=== PATIENT | female | born 1995 | race Caucasian/White ===

== ENCOUNTER 2017-02-08 12:08 | Inpatient (IN) | payer MEDICAID ==
[2017-02-08] MEDS ORDERED: OXYTOCIN/NORMAL SALINE 1,000 ML IV PRN (12:50)
[2017-02-08] MEDS ORDERED: RINGERS SOLUTION,LACTATED 1,000 ML IV PRN (12:50)
[2017-02-08] MEDS ORDERED: RINGERS SOLUTION,LACTATED 300 ML IV ONE (12:50)
[2017-02-08 13:07] LABS: APPEARANCE,URINE CLEAR; BILIRUBIN,URINE NEGATIVE (NEGATIVE); GLUCOSE, URINE NEGATIVE (NEGATIVE); KETONES,URINE NEGATIVE (NEGATIVE); LEUKOCYTE ESTERASE,URINE NEGATIVE (NEGATIVE); NITRITE,URINE NEGATIVE (NEGATIVE); PROTEIN,URINE NEGATIVE (NEGATIVE); URINE SPECIFIC GRAVITY 1.004; UROBILINOGEN,URINE NEGATIVE mg/dL (<2.0)
[2017-02-08 13:15] LABS: ABSOLUTE EOSINOPHILS # (AUTO) 0.1 10^3/uL (0.0-0.6); ABSOLUTE LYMPHOCYTES (AUTO) 2.3 10^3/uL (0.5-4.7); ABSOLUTE MONOCYTES (AUTO) 0.8 10^3/uL (0.1-1.4); ABSOLUTE NEUT (AUTO) 11.4 10^3/uL (1.7-8.2); BASOPHILS % (AUTO) 0.2 % (0-2); EOSINOPHILS % (AUTO) 0.4 % (0-6); HEMATOCRIT 37.4 % (36.0-47.0); HEMOGLOBIN 12.2 g/dL (12.0-15.5); HGB HCT DIFFERENCE -0.8; LYMPHOCYTES % (AUTO) 15.9 % (13-45); MEAN CORPUSCULAR HEMOGLOBIN 28.5 pg (27.0-33.4); MEAN CORPUSCULAR HGB CONC 32.8 g/dL (32.0-36.0); MEAN CORPUSCULAR VOLUME 87 fl (80-97); MONOCYTES % (AUTO) 5.7 % (3-13); RED CELL DISTRIBUTION WIDTH 15.6 % (11.5-14.0); SEGMENTED NEUTROPHILS % (AUTO) 77.8 % (42-78); WHITE BLOOD COUNT 14.7 10^3/uL (4.0-10.5)
[2017-02-08 13:21] LABS: URINE BARBITURATES SCREEN NEGATIVE; URINE METHADONE SCREEN NEGATIVE; URINE OPIATES LOW NEGATIVE; URINE PHENCYCLIDINE SCREEN NEGATIVE
[2017-02-08] MEDS ORDERED: MISOPROSTOL 0.2 MG TABLET ONE (14:28)
[2017-02-08] MEDS ORDERED: LIDOCAINE 1% INJ-PF (10 MG/ML) 30 ML SDV ONE (14:28)
[2017-02-08] MEDS ORDERED: OXYTOCIN/NORMAL SALINE 20 UNIT/1,000 ML RTUINJ ONE (14:28)
[2017-02-09] MEDS ORDERED: NALBUPHINE HCL INJ 10 MG/1 ML AMPULE INJ ONE (00:37)
[2017-02-09] MEDS ORDERED: DIPHENHYDRAMINE HCL 50 MG/ML VIAL IV PRN ×2 (00:52→12:49)
[2017-02-09] MEDS ORDERED: EPHEDRINE SULFATE INJ 50 MG/1 ML AMPULE IV ONE (00:52)
[2017-02-09] MEDS ORDERED: BENZOIN/ALOE VERA/STORAX/TOLU TINCTURE 60 ML TP PRN (00:52)
[2017-02-09] MEDS ORDERED: EPHEDRINE SULFATE INJ 50 MG/1 ML AMPULE IV PRN (00:52)
[2017-02-09] MEDS ORDERED: FENTANYL/BUPIVACAINE/NS/PF 100 ML EPI PRN (00:52)
[2017-02-09] MEDS ORDERED: BUPIVACAINE HCL 0.25 % INJ/PF (2.5 MG/1 ML) 30 ML VIAL INFIL ONE (00:52)
[2017-02-09] MEDS ORDERED: EPHEDRINE SULFATE INJ 50 MG/1 ML AMPULE ONE ×2 (00:56→12:36)
[2017-02-09] MEDS ORDERED: BUPIVACAINE HCL 0.25 % INJ/PF (2.5 MG/1 ML) 30 ML VIAL ONE (00:57)
[2017-02-09] MEDS ORDERED: FENTANYL/BUPIVACAINE/NS/PF 200 MCG/100 ML RTUINJ EPI ONE ×2 (00:57→09:26)
--- NOTE | 2017-02-09 03:31 | L&D Progress Notes ---
PROGRESS NOTES Datetime Report Generated by CPN: 02/09/2017 03:30 PROGRESS NOTE Impression: Premature Rupture of Membranes Procedures: Intrauterine Pressure Catheter Plan: Induction Vital Signs : Reviewed Comment: IUPC placed to assure adequate contractions. Cont induction. VAGINAL EXAM Dilatation: 4 Dilatation: 2 Effacement: 90 Effacement: 80 Station: 0 Station: -2 Contractions: irregular MEMBRANES Membranes: Ruptured Amniotic Fluid Color: Clear FETUS A FHR Category: Category I Estimated Weight (gm): 4000 Presentation: Vertex SIGNATURE SIGNATURE: [id number] Signature: with User ID: [email or web address]
--- NOTE | 2017-02-09 04:01 | L&D Progress Notes ---
PROGRESS NOTES Datetime Report Generated by CPN: 02/09/2017 04:00 PROGRESS NOTE Comment: Pt has had intermittent lates which respond to oxygen, positioning and ephedrine when bp low. Discussed r/b/a of should need arise. IUPC readjusted after repositioning and flushed...will use ext toco if needed. Currently reassuring fhts. FETUS C SIGNATURE: [id number] Signature: with User ID: [email or web address]
--- NOTE | 2017-02-09 08:21 | L&D Progress Notes ---
PROGRESS NOTES Datetime Report Generated by CPN: 02/09/2017 08:21 PROGRESS NOTE Impression: Reassuring Heart Rate; Rupture of Membranes Plan: Continue Present Management; Induction Informed Consent Obtained: Vaginal Delivery Vital Signs : Reviewed; Within Normal Limits Comment: comfortable with epidural, Pitocin infusing @ 10, Cat 1 strip FETUS A Monitoring: External US Variability: Moderate 6-25bpm Accelerations: 15X15 Decelerations: None : 39.6 FETUS C SIGNATURE: [id number] Assignment: Facundo Butler DO Signature: with User ID: [email or web address] : with User ID: [email or web address]
--- NOTE | 2017-02-09 08:28 | L&D Progress Notes ---
PROGRESS NOTES Datetime Report Generated by CPN: 02/09/2017 08:28 PROGRESS NOTE Comment: variable and late decelerations x 3, moderate variabilitym repositioned, monitor closely FETUS C SIGNATURE: [id number] Assignment: Facundo ButlerDO Signature: with User ID: [email or web address] : with User ID: [email or web address]
[2017-02-09] MEDS ORDERED: CEFAZOLIN 2 GM/D5W RTU 2 GM/50 ML RTUPB IV ONE ×2 (10:17→12:30)
[2017-02-09] MEDS ORDERED: CITRIC ACID/SODIUM CITRATE ORAL SOLN 15 ML UDCUP ONE (12:30)
[2017-02-09] MEDS ORDERED: BUPIVACAINE HCL 0.5 % INJ/PF 30 ML SDV ONE (12:34)
[2017-02-09] MEDS ORDERED: FENTANYL CITRATE INJ/PF 100 MCG/2 ML AMPUL ONE ×2 (12:35→13:46)
[2017-02-09] MEDS ORDERED: OXYTOCIN 10 UNIT/ML VIAL ONE (12:35)
[2017-02-09] MEDS ORDERED: FENTANYL CITRATE INJ/PF 250 MCG/5 ML AMPULE ONE (12:35)
[2017-02-09] MEDS ORDERED: MIDAZOLAM 2 MG/2 ML INJ ONE (12:36)
[2017-02-09] MEDS ORDERED: OXYTOCIN/NORMAL SALINE 20 UNIT/1,000 ML RTUINJ ONE (12:36)
[2017-02-09] MEDS ORDERED: ONDANSETRON HCL INJ/PF 4 MG/2 ML SDV ONE (12:36)
[2017-02-09] MEDS ORDERED: METHYLERGONOVINE MALEATE INJ/PF 0.2 MG/1 ML AMPULE ONE (12:40)
[2017-02-09] MEDS ORDERED: MORPHINE SULFATE 10 MG/ML INJ IV PRN (12:49)
[2017-02-09] MEDS ORDERED: FENTANYL CITRATE INJ/PF 100 MCG/2 ML AMPUL IV PRN ×3 (12:49)
[2017-02-09] MEDS ORDERED: PROMETHAZINE HCL INJ 25 MG/1 ML VIAL IV PRN ×2 (12:49→14:40)
[2017-02-09] MEDS ORDERED: MEPERIDINE HCL/PF INJ 25 MG/1 ML DISP.SYRIN IV PRN (12:49)
[2017-02-09] MEDS ORDERED: ACETAMINOPHEN 100 ML IV ONE (14:12)
[2017-02-09] MEDS ORDERED: KETOROLAC TROMETHAMINE INJ/PF 30 MG/1 ML SDV ONE (14:12)
--- NOTE | 2017-02-09 14:26 | Delivery Summary ---
Del Sum A-C Datetime Report Generated by CPN: 02/09/2017 14:25 DELIVERY PERSONNEL DELIVERY PERSONNEL: [id number] Delivery Doctor:: Facundo Butler DO Anesthesiologist:: Golden Alas MD AIRFRAME AND POWERPLANT MECHANIC:: Chau Harris CRNA Labor and Delivery Nurse:: Nena Coulter RN Neonatal Nurse Practitioner:: ELIJAH Barber Nursery Nurse:: Jennifer Penny RN Founder Chairman And Chief Creative Officer/TECHNICAL SALES ASSOCIATE: [facility] Founder Chairman And Chief Creative Officer/TECHNICAL SALES ASSOCIATE: Tia oLfton LINE HAUL DRIVER MATERNAL INFORMATION Delivery Anesthesia: Epidural Medications After Delivery: Pitocin Bolus-Please Comment; Pitocin Drip 20 Units/1000ml NSS; Methergine 0.2mg IM Estimated Blood Loss (ml): 600 Maternal Complications: Premature Rupture of Membranes Other Maternal Complications: prolonged ROM LABOR SUMMARY EDC: 02/16/2017 00:00 No. Babies in Womb: 1 Attempted: No Labor Anesthesia: Epidural LABOR INFORMATION Reason for Induction: Not Applicable Oxytocin: Augmentation Group B Beta Strep: neg Antibiotics # of Doses: 2 Antibiotics Time of Last Dose: 1231 Name of Antibiotic Given: Ancef Steroids Given: None Reason Steroids Not Administered: Not Applicable MEMBRANES Membranes Rupture Method: Spontaneous Rupture of Membranes: 02/08/2017 11:00 Length of Rupture (hr): 26.10 Amniotic Fluid Color: Clear Amniotic Fluid Amount: Small Amniotic Fluid Odor: None STAGES OF LABOR Stage 3 hr: 0 Stage 3 min: 1 VAGINAL DELIVERY Episiotomy: None Laceration Extension: N/A Laceration Type: None Laceration Repair: Not Applicable CSECTION DELIVERY Primary Indication: Nonreassuring Status Secondary Indication: Other Other Secondary Indication: Failure to progress CSection Urgency: Non-Scheduled CSection Incidence: Primary Labor: Labor Elective: Nonelective CSection Incision: Lower Uterine Transverse BABY A INFORMATION Delivery Date/Time: 02/09/2017 13:06 Method of Delivery: Born in Route : No : N/A Forceps: N/A Vacuum Extraction: N/A Shoulder Dystocia : No PRESENTATION/POSITION BABY A Presentation: Cephalic Cephalic Presentation: Vertex Breech Presentation: N/A PLACENTA INFORMATION BABY A Placenta Delivery Time : 02/09/2017 13:07 Placenta Method of Delivery: Manual Removal Placenta Status: Delivered SCORES BABY A Heart Rate 1 min: >100 bpm Resp Effort 1 min: Good Cry Reflex Irritability 1 min: Cough or Sneeze or Pulls Away Muscle Tone 1 min: Active Motion Color 1 min: Blue/Pale Resuscitation Effort 1 min: Tactile Stimulation SCORE 1 MIN: 8 Heart Rate 5 min: >100 bpm Resp Effort 5 min: Good Cry Reflex Irritability 5 min: Cough or Sneeze or Pulls Away Muscle Tone 5 min: Active Motion Color 5 min: Body [place], Extremities Blue Resuscitation Effort 5 min: Tactile Stimulation SCORE 5 MIN: 9 INFORMATION BABY A Gestational Age at Delivery: 39.0 Gestational Status: Full Term- 39- 40.6 Weeks Outcome : Liveborn Infant Condition : Stable Sex: Male WEIGHT/LENGTH BABY A Infant Birthweight (gm): 3365 Infant Weight (lb): 7 Infant Weight (oz): 7 Length (in): 21.00 Length (cm): 53.34 CORD INFORMATION BABY A No. Cord Vessels: 3 Nuchal Cord : Around Neck x1, Loose Cord Blood Taken: Yes-For Eval (Mom's Blood Type - or O+) Suction: None ASSESSMENT BABY A Infant Complications: Multiple Late Decels; Multiple Variable Decels Physical Findings at Delivery: Molding of the Head Infant Respirations: Appears Normal Skin to Skin: No Power Sewing Machine Operator/ALS Called : No Infant Care By: R. Lucas Vaughan RN Transferred To: Nursery BABY B INFORMATION : N/A
[2017-02-09] MEDS ORDERED: KETOROLAC TROMETHAMINE INJ/PF 30 MG/1 ML SDV IV ONE (14:36)
[2017-02-09] MEDS ORDERED: ACETAMINOPHEN 100 ML IV PRN (14:36)
[2017-02-09] MEDS ORDERED: OXYTOCIN/NORMAL SALINE 1,000 ML IV PRN (14:40)
[2017-02-09] MEDS ORDERED: SIMETHICONE 80 MG TAB.CHEW PO PRN (14:40)
[2017-02-09] MEDS ORDERED: OXYCODONE-ACETAMINOPHEN 5-325 MG TABLET PO PRN ×2 (14:40)
[2017-02-09] MEDS ORDERED: ACETAMINOPHEN 325 MG TABLET PO PRN (14:40)
[2017-02-09] MEDS ORDERED: DIPH/PERTUSS(ACELL)/TETANUS VAC/PF 0.5 ML SYR (>=10YO) IM PRN (14:40)
[2017-02-09] MEDS ORDERED: MEASLES,MUMPS&RUBELLA VACC/PF 0.5 ML VIAL SUBCUT PRN ×2 (14:40→15:15)
[2017-02-09] MEDS ORDERED: CEFAZOLIN 2 GM/D5W RTU 2 GM/50 ML RTUPB IV SCH (15:00)
[2017-02-09] MEDS ORDERED: HYDROMORPHONE HCL INJ/PF 2 MG/ML AMPULE IV PRN (15:03)
[2017-02-09] MEDS ORDERED: PROMETHAZINE HCL INJ 25 MG/1 ML VIAL IM PRN (15:13)
--- NOTE | 2017-02-09 15:22 | Admission Physical ---
Datetime Report Generated by CPN: 02/09/2017 15:21 CURRENT ADMISSION Hx Assessment: The History has been Reviewed and is Current Chief Complaint: Suspected Ruptured Membranes Indication for Induction: Not Applicable Admit Plan: Admit to Unit; Initiate Labor Protocol ALLERGIES Medication Allergies: No Medication Allergies: No Known Allergies (02/08/2017) Latex: No Latex Allergies Food Allergies: none Environmental Allergies: none OBSTETRICAL HISTORY EDC: 02/16/2017 00:00 : 1 Para: 0 Term: 0 : 0 SAB: 0 IAB: 0 Ectopic: 0 Livin Cesareans: 0 VBACs: 0 Multiple Births: 0 Gestational Diabetes: No Rh Sensitization: No Incompetent Cervix: No TARSHA: No Infertility: No ART Treatment: No Uterine Anomaly: No IUGR: No Hx Previous C/S: No Macrosomia: No Hx Loss/Stillborn: No PIH: No Hx : No Placenta Previa/Abruption: No Depression/PP Depression: No PTL/PROM: No Post Hemorrhage: No Current Procedures: Ultrasound Obstetrical History Comments: G1-Current SEE RECORDS Alcohol: No Marijuana : No Cocaine: No Other Illicit Drugs: No Cigarettes: Never Smoker. [id number] MEDICAL HISTORY Diabetes: No Blood Transfusion: No Pulmonary Disease (Asthma, TB): Yes Breast Disease: No Hypertension: No [employer] Consultant Surgery: No Heart Disease: No Hosp/Surgery: No Autoimmune Disorder: No Anesthetic Complications: No Kidney Disease: No Abnormal Pap Smear: No Neuro/Epilepsy: No Psychiatric Disorders: No Other Medical Diseases: No Hepatitis/Liver Disease: No Significant Family History: No Varicosities/Phlebitis: No Trauma/Violence : No Thyroid Dysfunction: No Medical History Comments: Asthma- childhood asthma INFECTIOUS HISTORY Gonorrhea: No Genital Herpes: No Chlamydia: Yes Tuberculosis: No Syphilis: No Hepatitis: No HIV/AIDS Exposure: No Rash or Viral Illness: No HPV: No Infectious History Comments: H/O chlamydia 07/26/2016 GINGER 09/14/2016 PHYSICAL EXAM General: Normal HEENT: Normal Neurologic: Normal Thyroid: Deferred Heart: Normal Lungs: Normal Breast: Normal Back: Normal Abdomen: Normal Genitourinary Exam: Normal Extremities: Normal DTRs: Normal Pelvic Type: Adequate Vital Signs: Reviewed VAGINAL EXAM Dilatation: 4 Dilatation: 2 Effacement: 90 Effacement: 80 Station: 0 Station: -2 Contraction Comments: irregular MEMBRANES Membranes: Ruptured Amniotic Fluid Color: Clear FETUS A EGA: 38.6 Monitoring: External US FHR- Baseline: 145 Variability: Moderate 6-25bpm Accelerations: 15X15 Decelerations: None FHR Category: Category I Estimated Weight (gm): 4000 Presentation: Vertex Admit Comment: SROM at 11am this morning, clear, pt states + fm, denies vb, is not feeling ctx. Hx: asthma, no inhaler X10 years, + chlamydia at [facility], tx-ginger neg 09/14/16. RH neg. s>d measuring 2 weeks ahead. [facility] transfer 17w6d, dated by lmp c/w 11 w sono Obesity GBS negative Will admit to L _ D Pitocin PLANS FOR LABOR AND DELIVERY Labor and Delivery: None Pain Management: Natural; Medications Feeding Preference: Formula Benefit of Breast Feed Discussed: Yes Circumcision: Yes INFORMED CONSENT Informed Consent Obtained: Vaginal Delivery Assignment: Loreto Loo MD Signature: with User ID: [email or web address] : with User ID: [email or web address]
[2017-02-09] MEDS: DOCUSATE SODIUM 100 MG CAPSULE PO SCH (17:53)
[2017-02-09] MEDS: IBUPROFEN 800 MG TABLET PO SCH ×2 (17:54→23:03)
[2017-02-10] MEDS: IBUPROFEN 800 MG TABLET PO SCH ×3 (06:11→17:33)
[2017-02-10 06:40] LABS: HEMATOCRIT 27.9 % (36.0-47.0); HGB HCT DIFFERENCE -0.6; MEAN CORPUSCULAR HGB CONC 32.7 g/dL (32.0-36.0); MEAN CORPUSCULAR VOLUME 89 fl (80-97); RED BLOOD COUNT 3.15 10^6/uL (3.72-5.28); RED CELL DISTRIBUTION WIDTH 15.5 % (11.5-14.0); WHITE BLOOD COUNT 17.2 10^3/uL (4.0-10.5)
[2017-02-10 06:53] LABS: HEMOGLOBIN 9.1 g/dL (12.0-15.5)
--- NOTE | 2017-02-10 09:30 | PDOC PROGRESS REPORT ---
Subjective-OB Subjective: Post Delivery Day: 22 year old. Denies any needs at this time Physical Exam (OB) Vital Signs: Temp Pulse Resp BP Pulse Ox 98.3 F 90 17 113/57 L 98 02/10/17 08:42 02/10/17 08:42 02/10/17 08:42 02/10/17 08:42 02/10/17 08:42 Intake & Output 02/09/17 02/10/17 02/11/17 06:59 06:59 06:59 Intake Total 1650 Output Total 1675 Balance -25 Weight 96.6 kg - Dressing Removed: No - silk tape dressing in place Incision: Dressing - Lochia Lochia Amount: Scant < 10 ml Lochia Color: Rubra/Red - Abdomen Description: Tender, Soft Hernia Present: No Bowel Sounds: Normoactive Flatus Presence: Absent Stool: No Fundal Description: Firm, Midline Fundal Height: u/u - u/2 Objective-Diagnostic Laboratory: 02/10/17 06:09 02/10/17 06:09 WBC 17.2 H RBC 3.15 L Hgb 9.1 L D Hct 27.9 L MCV 89 MCH 29.0 MCHC 32.7 RDW 15.5 H Plt Count 168
[2017-02-10] MEDS: PRENATAL VITAMIN W-O CA NO5/FE FUMARATE/FA CAPSULE PO SCH (09:58)
[2017-02-10] MEDS: DOCUSATE SODIUM 100 MG CAPSULE PO SCH ×2 (09:58→17:33)
[2017-02-11] MEDS: IBUPROFEN 800 MG TABLET PO SCH ×3 (00:24→12:02)
[2017-02-11 07:50] LABS: HEMATOCRIT 28.6 % (36.0-47.0); HEMOGLOBIN 9.2 g/dL (12.0-15.5); MEAN CORPUSCULAR HEMOGLOBIN 28.6 pg (27.0-33.4); MEAN CORPUSCULAR HGB CONC 32.2 g/dL (32.0-36.0); MEAN CORPUSCULAR VOLUME 89 fl (80-97); RED BLOOD COUNT 3.22 10^6/uL (3.72-5.28); RED CELL DISTRIBUTION WIDTH 15.6 % (11.5-14.0); WHITE BLOOD COUNT 16.7 10^3/uL (4.0-10.5)
--- NOTE | 2017-02-11 10:00 | PDOC PROGRESS REPORT ---
Subjective-OB Subjective: Post Delivery Day: 22 year old. Denies any needs at this time. Ready to go home. Physical Exam (OB) Vital Signs: Temp Pulse Resp BP Pulse Ox 98.0 F 85 16 112/53 L 99 02/11/17 08:07 02/11/17 08:07 02/11/17 08:07 02/11/17 08:07 02/11/17 08:07 Intake & Output 02/10/17 02/11/17 02/12/17 06:59 06:59 06:59 Intake Total 1650 1200 Output Total 1675 500 Balance -25 700 - PIH/Pre-Eclampsia Headache: Absent Epigastric Pain: No Visual Changes: No - Dressing Removed: No - opsite dressing in place Incision: Open, Dressing Closure Type: opsite - Lochia Lochia Amount: Scant < 10 ml Lochia Color: Rubra/Red - Abdomen Description: Soft, Round Hernia Present: No Bowel Sounds: Normoactive Flatus Presence: Present Stool: Yes Fundal Description: Firm, Midline Fundal Height: u/u - u/2 Objective-Diagnostic Laboratory: 02/11/17 07:12 02/10/17 02/11/17 06:09 07:12 WBC 16.7 H RBC 3.22 L Hgb 9.2 L Hct 28.6 L MCV 89 MCH 28.6 MCHC 32.2 RDW 15.6 H Plt Count 183 Blood Type O NEGATIVE
--- NOTE | 2017-02-11 10:08 | PDOC DISCHARGE SUMMARY ---
Final Diagnosis Discharge Date: 02/11/17 - Final Diagnosis (1) Chlamydia infection during Is this a current diagnosis for this admission?: Yes (2) Delivery normal Is this a current diagnosis for this admission?: Yes (3) History of asthma Is this a current diagnosis for this admission?: Yes (4) Obesity Is this a current diagnosis for this admission?: Yes (5) Is this a current diagnosis for this admission?: Yes (6) Failure to progress in labor Is this a current diagnosis for this admission?: Yes Discharge Data - Discharge Medication Home Medications: Vit W-Ca,Fe,FA(<1 mg) [ Vitamins] 1 each PO DAILY 02/08/17 Ibuprofen [Motrin 800 mg Tablet] 800 mg PO Q6 #30 tablet 02/11/17 Oxycodone HCl/Acetaminophen [Percocet 5-325 mg Tablet] 1 tab PO Q4HP PRN #20 tablet 02/11/17 Gestational Age: 39.0 wks Reason(s) for Admission: PROM Procedures: Ultrasound Intrapartum Procedure(s): : Low Cervical, Transverse - Data Baby 1 Male at 1 minute: 8 at 5 minutes: 9 Weight: 3.374 kg Home with Mother: Yes Complications: No - Diagnosis Test Laboratory: Temp Pulse Resp BP Pulse Ox 98.0 F 85 16 112/53 L 99 02/11/17 08:07 02/11/17 08:07 02/11/17 08:07 02/11/17 08:07 02/11/17 08:07 02/08/17 02/08/17 02/10/17 12:21 13:01 06:09 RBC 4.30 3.15 L Hgb 12.2 9.1 L D Hct 37.4 27.9 L Urine Opiates Screen NEGATIVE 02/11/17 07:12 RBC 3.22 L Hgb 9.2 L Hct 28.6 L Urine Opiates Screen - Discharge information/Instructions Discharge Activity: Activity As Tolerated, Balance Activity w/Rest, No Lifting Over 10 Pounds, No Lifting/Push/Pulling, Pelvic Rest, Slowly Increase Activity, No tub bath Discharge Diet: Regular Disposition: HOME, SELF-CARE Follow up with: [facility] in: 1, Weeks
[2017-02-11] MEDS: PRENATAL VITAMIN W-O CA NO5/FE FUMARATE/FA CAPSULE PO SCH (10:19)
[2017-02-11] MEDS: DOCUSATE SODIUM 100 MG CAPSULE PO SCH (10:19)
[2017-02-11 12:18] VITALS: BP 120/60
--- NOTE | 2017-03-21 09:39 | OPERATIVE REPORT E ---
Operative Report NAME: ANYA ZAPATA : 1995 AGE: 22Y DATE OF SURGERY: 02/09/2017 ROOM: 221 PREOPERATIVE DIAGNOSIS: Failed induction. POSTOPERATIVE DIAGNOSIS: Failed induction. PROCEDURE: Primary low transverse section. SURGEON: Facundo Butler D.O. PACKAGE LINE RELIEF OPERATOR: None. ANESTHESIA: Epidural. COMPLICATIONS: None. PATHOLOGY: Placenta. ESTIMATED BLOOD LOSS: Six-hundred mL. FINDINGS: 1. A viable male at 1306 hours on 02/09/2017, Apgars 8 at one minute and 9 at five minutes. 2. Loose nuchal cord x1. 3. Normal appearing bilateral fallopian tubes and ovaries. PROCEDURE: Patient was taken to the operating room where her epidural anesthesia was checked and found to be working adequately. She was then placed in dorsal supine position with a leftward tilt upon the operating room table. She was then prepped and draped in normal sterile fashion. A scalpel was then used to make a Pfannenstiel skin incision. The skin incision was carried down through the subcutaneous tissues to the layer of the fascia. The fascia was then incised in the midline. Fascial incision was then extended bilaterally using the Bovie cautery. The superior fascial edge was grasped by Caren clamps, elevated, and rectus muscles dissected off sharply and bluntly. Attention was then turned to the inferior fascial edge, which was grasped with Caren clamps, elevated, and rectus muscles dissected off sharply and bluntly. Rectus muscles were then in the midline. Peritoneum identified and entered bluntly with the surgeon's hand. The bladder blade was inserted. A scalpel was then used to make a low transverse hysterotomy incision. The infant was delivered through this incision without difficulty and atraumatically. The nose and mouth were suctioned. The cord was clamped and cut. The was handed off to the awaiting nurses. Of note, there was a loose nuchal cord x1 that was easily reduced. Following external exteriorization of the uterus, the hysterotomy incision was then reapproximated using 2 layers of 1-0 Vicryl in a running locking fashion. Following closure of the second layer, excellent hemostasis was noted. The uterus was then returned to the abdomen. Again, the hysterotomy incision was reinspected and found to have excellent hemostasis. The rectus muscles were then reapproximated using 1-0 Vicryl interrupted sutures. The fascia was then closed using 1-0 Vicryl in a running nonlocking fashion. The subcutaneous space was then made hemostatic using Bovie cautery. The skin was then closed with absorbable enedelia, covered with an OpSite, and then with a pressure dressing. At this point in time the procedure was terminated. All sponge, lap, and needle counts were correct x2. Patient tolerated the procedure well. Patient was taken to the recovery room in stable condition. DICTATING PHYSICIAN: Facundo Butler DO [id number] PHY#: [id number] ID: [id number] JOB#: [id number] ACCT: [id number] cc:Facundo Butler D.O. >
== END 2017-02-11 14:15 | disposition home or self-care (01) | DRG 765 ==
LOC: LC 12:08 → LR 12:29 → 2S 02-09 15:20
PROVIDERS: ADMIT Specialist; ATTEND Obstetrics & Gynecology
PROC: 4A1HXCZ Monitoring of Products of Conception, Cardiac Rate, External Approach (ICD-10-PCS; 2017-02-08)
PROC: 10D00Z1 Extraction of Products of Conception, Low, Open Approach (ICD-10-PCS; principal; 2017-02-09)
PROC: 10H07YZ Insertion of Other Device into Products of Conception, Via Natural or Artificial Opening (ICD-10-PCS; 2017-02-09)
PROC: 4A1H7CZ Monitoring of Products of Conception, Cardiac Rate, Via Natural or Artificial Opening (ICD-10-PCS; 2017-02-09)
PROC: 3E0234Z Introduction of Serum, Toxoid and Vaccine into Muscle, Percutaneous Approach (ICD-10-PCS; 2017-02-10)
DX: O62.2 Other uterine inertia (principal); Z68.41 Body mass index [BMI] 40.0-44.9, adult; O99.214 Obesity complicating childbirth; O42.92 Full-term premature rupture of membranes, unspecified as to length of time between rupture and onset of labor; O26.893 Other specified pregnancy related conditions, third trimester; E66.9 Obesity, unspecified; O76 Abnormality in fetal heart rate and rhythm complicating labor and delivery; O69.81X0 Labor and delivery complicated by cord around neck, without compression, not applicable or unspecified; O99.52 Diseases of the respiratory system complicating childbirth; Z37.0 Single live birth; Z3A.39 39 weeks gestation of pregnancy; Z67.41 Type O blood, Rh negative; Z87.09 Personal history of other diseases of the respiratory system
CPT/HCPCS: 1961; 36415; 80307; 81005; 85025; 85027; 85461; 86592; 86850; 86900; 86901; 88307; 94799; J0131; J0690; J1885; J2210; J2250; J2405; J2590; J2790; J3010; J3490; J7120

== ENCOUNTER 2017-04-30 14:47 | Emergency (ER) | payer MEDICAID ==
--- NOTE | 2017-04-30 15:22 | ER Document Report ---
ED Skin Rash/Insect Bite/Abscs - General Chief Complaint: Insect Bite Stated Complaint: POSSIBLE INSECT BITE Time Seen by Provider: 04/30/17 15:07 Mode of Arrival: Ambulatory Information source: Patient TRAVEL OUTSIDE OF THE [place] IN LAST 30 DAYS: No - HPI Patient complains to provider of: Skin rash/lesion, Tender/swollen area Onset: Other - 3 days Onset/Duration: Gradual Quality of pain: Pressure Severity: Moderate Pain Level: 3 Skin Character: Abscess Skin Temperature: Warm Quality of rash: Painful Exacerbated by: Other - touch Relieved by: Denies Similar symptoms previously: No Recently seen / treated by doctor: No Notes: Patient arrives with complaints of possible abscess to the upper back. She states that she noticed this approximately 3 days ago seems to be getting worse. There has been no fever. No nausea, vomiting, diarrhea. No injury. She denies a history of diabetes. No chest pain or shortness of breath. No abdominal pain. She denies any other complaints at this time. - Related Data Allergies/Adverse Reactions: No Known Allergies Allergy (Verified 04/30/17 14:52) Past Medical History - Social History Smoking Status: Unknown if Ever Smoked Family History: Reviewed & Not Pertinent Patient has suicidal ideation: No Patient has homicidal ideation: No Renal/ Medical History: Denies: Hx Peritoneal Dialysis Review of Systems - Review of Systems -: Yes All other systems reviewed and negative Physical Exam - Vital signs Vitals: Temp Pulse Resp BP Pulse Ox 99.0 F 88 16 129/78 H 99 04/30/17 14:52 04/30/17 14:52 04/30/17 14:52 04/30/17 14:52 04/30/17 14:52 - Notes Notes: GENERAL: alert, cooperative, nontoxic, no distress. HEAD: normocephalic, atraumatic EYES: conjunctiva pink without discharge, no external redness or swelling. EARS: no external swelling, no external redness NOSE: atraumatic, no external swelling MOUTH/THROAT: mucous membranes moist and pink NECK: soft, supple, full range of motion, no meningismus. CHEST: no distress, lungs clear and equal throughout. No wheezing, rales, rhonchi. CARDIAC: regular rate and rhythm, no murmur, normal capillary refill, normal pulses. BACK: full range of motion, no CVA tenderness. EXTREMITIES: full range of motion of all extremities. No redness, no swelling. NEURO: alert and oriented 3, no focal deficits, full range of motion of all extremities. PYSCH: appropriate mood, affect. Patient is cooperative. SKIN: pink, warm, dry, no rash. 4 cm fluctuant abscess to the left upper back with mild surrounding erythema. Mild tenderness to palpation. No drainage. Course - Re-evaluation Re-evalutation: 04/30/17 16:09 Patient is nontoxic appearing with stable vitals. The patient has an abscess to the upper back. This was drained in the emergency department. The patient tolerated the procedure well. Due to the size of it as well as the surrounding erythema, the patient will be started on antibiotics. She will be discharged home on Keflex and Bactrim. I will also prescribe Ultram as needed for pain. She was instructed to apply warm compresses to the sore area. Follow-up if this is not improving in the next 2 days, sooner for increased pain, fever, increased redness, or any further concerns. The patient is noted to have elevated blood pressure during today's emergency department visit. The patient was informed of this finding. The patient was instructed that this may be related to pre-hypertension and requires further evaluation with a primary care provider. The patient has no hypertensive symptoms at this time. - Vital Signs Vital signs: Temp Pulse Resp BP Pulse Ox 99.0 F 88 16 129/78 H 99 04/30/17 14:52 04/30/17 14:52 04/30/17 14:52 04/30/17 14:52 04/30/17 14:52 Procedures - Incision and Drainage Upper back Type: Simple Anesthetic type: 1% Lidocaine mL's of anesthetic: 4 Blade size: 11 I&D procedure: Betadine prep applied, Sterile dressing applied, Other - Abscess was probed with hemostats. Abscess cavity was irrigated with normal saline. Incision Method: Incision made by scalpel Amount/type of drainage: Large amount of purulent drainage Discharge - Discharge Clinical Impression: Abscess or cellulitis of back Condition: Stable Disposition: HOME, SELF-CARE Instructions: Abscess ([facility]), Cephalexin ([facility]), Trimethoprim-Sulfa ([facility]), Post Incision and Drainage Additional Instructions: Take medications as prescribed. Apply warm compresses to sore area. Follow-up if not better in 2 days, sooner for increased pain, fever, redness, or any further concerns. Your blood pressure was elevated during today's visit. Have this rechecked with your doctor. The medication you were prescribed today may cause drowsiness. Do not drive or operate heavy machinery while taking this medication. Prescriptions: Cephalexin Monohydrate [Keflex 500 mg Capsule] 500 mg PO QID #40 capsule Sulfamethoxazole/Trimethoprim [Bactrim Ds Tablet] 1 each PO BID #20 tablet Tramadol HCl [Ultram] 50 mg PO TID PRN #10 tablet PRN Reason: Forms: Elevated Blood Pressure
[2017-04-30 16:29] VITALS: BP 130/73
== END 2017-04-30 16:28 | disposition home or self-care (01) ==
LOC: ER 14:47
PROC: 0H96XZZ Drainage of Back Skin, External Approach (ICD-10-PCS; principal; 2017-04-30)
DX: L02.212 Cutaneous abscess of back [any part, except buttock and flank] (principal); R03.0 Elevated blood-pressure reading, without diagnosis of hypertension
CPT/HCPCS: 99281

== ENCOUNTER 2020-04-07 07:45 | Inpatient (IN) | payer MEDICAID ==
[2020-04-02 14:29] LABS: ABSOLUTE LYMPHOCYTES (AUTO) 2.8 10^3/uL (0.5-4.7); ABSOLUTE MONOCYTES (AUTO) 0.7 10^3/uL (0.1-1.4); ABSOLUTE NEUT (AUTO) 7.8 10^3/uL (1.7-8.2); BASOPHILS % (AUTO) 0.1 % (0-2); EOSINOPHILS % (AUTO) 0.4 % (0-6); HEMATOCRIT 35.4 % (36.0-47.0); HEMOGLOBIN 11.7 g/dL (12.0-15.5); LYMPHOCYTES % (AUTO) 24.7 % (13-45); MEAN CORPUSCULAR HEMOGLOBIN 25.8 pg (27.0-33.4); MEAN CORPUSCULAR VOLUME 78 fl (80-97); MONOCYTES % (AUTO) 5.9 % (3-13); PLATELET COUNT 236 10^3/uL (150-450); RED BLOOD COUNT 4.53 10^6/uL (3.72-5.28); RED CELL DISTRIBUTION WIDTH 16.1 % (11.5-14.0); SEGMENTED NEUTROPHILS % (AUTO) 68.9 % (42-78); TOTAL CELLS COUNTED % (AUTO) 100 %; WHITE BLOOD COUNT 11.3 10^3/uL (4.0-10.5)
[2020-04-02 14:41] LABS: APPEARANCE,URINE SLIGHTLY-CLOUDY; BILIRUBIN,URINE NEGATIVE (NEGATIVE); COLOR,URINE YELLOW; GLUCOSE, URINE NEGATIVE (NEGATIVE); KETONES,URINE NEGATIVE (NEGATIVE); LEUKOCYTE ESTERASE,URINE TRACE (NEGATIVE); NITRITE,URINE NEGATIVE (NEGATIVE); PROTEIN,URINE NEGATIVE (NEGATIVE); URINE SPECIFIC GRAVITY 1.006; UROBILINOGEN,URINE NEGATIVE mg/dL (<2.0)
[2020-04-02 14:55] LABS: URINE AMPHETAMINES SCREEN NEGATIVE; URINE BARBITURATES SCREEN NEGATIVE; URINE BENZODIAZEPINES SCREEN NEGATIVE; URINE COCAINE SCREEN NEGATIVE; URINE MARIJUANA (THC) SCREEN NEGATIVE; URINE METHADONE SCREEN NEGATIVE; URINE PHENCYCLIDINE SCREEN NEGATIVE
[~2020-04-07 07:45] MED LIST: CEFAZOLIN 2 GM/D5W RTU 2 GM/50 ML RTUPB IV PRN
[2020-04-08] MEDS ORDERED: LIDOCAINE 0.5% INJ-PF (5 MG/ML) 50 ML SDV SUBCUT PRN (05:00)
[2020-04-08] MEDS ORDERED: LACTATED RINGERS 1000 ML IV PRN (05:00)
[2020-04-08] MEDS ORDERED: CEFAZOLIN 2 GM/D5W RTU 2 GM/50 ML RTUPB IV PRN (08:24)
[2020-04-08] MEDS ORDERED: RINGERS SOLUTION,LACTATED 1,000 ML IV ONE (09:00)
[2020-04-08] MEDS ORDERED: OXYTOCIN 10 UNIT/ML VIAL ONE (10:37)
[2020-04-08] MEDS ORDERED: METHYLERGONOVINE MALEATE INJ/PF 0.2 MG/1 ML AMPULE ONE (10:37)
[2020-04-08] MEDS ORDERED: ACETAMINOPHEN 1,000 MG/100 ML RTUPB IV ONE (10:37)
[2020-04-08] MEDS ORDERED: MIDAZOLAM 2 MG/2 ML INJ ONE (10:37)
[2020-04-08] MEDS ORDERED: FENTANYL CITRATE INJ/PF 100 MCG/2 ML AMPUL ONE (10:37)
[2020-04-08] MEDS ORDERED: ONDANSETRON HCL INJ/PF 4 MG/2 ML SDV ONE (10:37)
[2020-04-08] MEDS ORDERED: EPHEDRINE SULFATE INJ 50 MG/1 ML AMPULE ONE (10:37)
[2020-04-08] MEDS ORDERED: OXYCODONE-ACETAMINOPHEN 5-325 MG TABLET PO PRN ×4 (11:46→12:30)
[2020-04-08] MEDS ORDERED: ONDANSETRON HCL INJ/PF 4 MG/2 ML SDV IV PRN (11:46)
[2020-04-08] MEDS ORDERED: MORPHINE SULFATE 10 MG/ML INJ IV PRN (11:46)
[2020-04-08] MEDS ORDERED: FENTANYL CITRATE INJ/PF 100 MCG/2 ML AMPUL IV PRN ×3 (11:46)
[2020-04-08] MEDS ORDERED: DIPHENHYDRAMINE HCL 50 MG/ML VIAL IV PRN (11:46)
[2020-04-08] MEDS ORDERED: PROMETHAZINE HCL INJ 25 MG/1 ML VIAL IV PRN ×3 (11:46→12:30)
[2020-04-08] MEDS ORDERED: MEPERIDINE HCL/PF INJ 25 MG/1 ML DISP.SYRIN IV PRN (11:46)
[2020-04-08] MEDS ORDERED: DIPH/PERTUSS(ACELL)/TETANUS VAC/PF 0.5 ML SYR (>=10YO) IM PRN (12:30)
[2020-04-08] MEDS ORDERED: MEASLES,MUMPS&RUBELLA VACC/PF 0.5 ML VIAL SUBCUT PRN (12:30)
[2020-04-08] MEDS ORDERED: HYDROMORPHONE HCL INJ/PF 2 MG/ML AMPULE IV PRN (12:30)
[2020-04-08] MEDS ORDERED: OXYTOCIN/0.9 % SODIUM CHLORIDE 30 UNIT/500 ML RTUINJ IV PRN (12:30)
[2020-04-08] MEDS ORDERED: SIMETHICONE 80 MG TAB.CHEW PO PRN (12:30)
[2020-04-08] MEDS ORDERED: RINGERS SOLUTION,LACTATED 1,000 ML IV PRN (12:30)
[2020-04-08] MEDS ORDERED: ACETAMINOPHEN 325 MG TABLET PO PRN (12:30)
[2020-04-08] MEDS ORDERED: ACETAMINOPHEN 1,000 MG/100 ML RTUPB IV PRN (12:30)
--- NOTE | 2020-04-08 12:38 | Operative Report ---
Operative Report DATE OF SURGERY: 04/08/20 PREOPERATIVE DIAGNOSIS: Repeat to prevent the risk of uterine rupture. POSTOPERATIVE DIAGNOSIS: Same as well as very dense uterine scarring to the anterior abdominal wall as well as omental scarring to the anterior abdominal wall OPERATION: Repeat via low transverse uterine incision SURGEON: ABBY POWELL ANESTHESIA: Spinal TISSUE REMOVED OR ALTERED: Placenta COMPLICATIONS: None ESTIMATED BLOOD LOSS: 400 cc INTRAOPERATIVE FINDINGS: Viable female crying at delivery. Uterus adherent to the anterior abdominal wall very densely. PROCEDURE: Patient was taken to the OR and placed in supine position after her spinal anesthesia. She is prepared and draped in sterile fashion. Devine was placed for drainage of the bladder. Low transverse incision was made and carried down the level of the fascia. The fascial incision was made with knife and extended bilaterally with curved Wong scissors. The fascia was off the rectus muscles using sharp and blunt dissection. The rectus muscles are in the midline. The peritoneum was entered without incident. The old uterine scar is adherent to the anterior abdominal wall. This was taken down with sharp dissection. There was no evidence of injury to the bladder. Bladder blade was placed in uterine segment was identified. Bladder blade was placed low transverse uterine incision was made with the knife and extended with fingertips. The baby was delivered with some fundal pressure. Mouth and nose were suctioned free. The cord is doubly clamped and cut. Baby is passed off to the children's aide in attendance. The placenta was manually extracted with trailing membranes. The uterus was externalized wrapped in a moist lap sponge. Uterine contents wiped free. Uterus was closed with a running locking layer of 0 chromic suture using the second layer to imbricate the first completing a double layer closure of the uterus. The serosa was closed with a running 2-0 chromic stitch. The pelvis was irrigated and suctioned free of fluid the uterus was replaced in the abdomen. Hemostasis was good. A layer of Interceed was placed over the scar on the uterus to help prevent further adhesion. The abdominal wall peritoneum was closed with running 2-0 chromic stitch. Fascia was closed with a running 0 Vicryl in 2 segments. Julio's layer was brought together with 0 plain gut stitch and the skin was closed with running subcuticular 4-0 undyed Vicryl stitch. The wound was dressed mother and baby did well.
[2020-04-08] MEDS ORDERED: MORPHINE SULFATE 10 MG/ML INJ ONE (12:54)
[2020-04-08] MEDS: KETOROLAC TROMETHAMINE INJ/PF 30 MG/1 ML SDV IV SCH ×2 (13:56→22:30)
[2020-04-08] MEDS ORDERED: KETOROLAC TROMETHAMINE INJ/PF 30 MG/1 ML SDV ONE (13:56)
--- NOTE | 2020-04-08 15:08 | Delivery Summary ---
Del Sum A-C Datetime Report Generated by CPN: 04/08/2020 15:07 DELIVERY PERSONNEL DELIVERY PERSONNEL: [id number] Delivery Doctor:: Travis Leonard MD STERNMAN:: Catia Lagos CRNA Signal System Testing Maintainer:: Namita Arias RN Neonatal Nurse Practitioner:: ELIJAH Green Nursery Nurse:: Jamaica Fisher RN Sheet Metal Fabricator/HAMMER RUNNER: Tia Lofton CST Sheet Metal Fabricator/HAMMER RUNNER: Em Hall, TIESHA MATERNAL INFORMATION Delivery Anesthesia: Spinal Medications After Delivery: Pitocin Bolus-Please Comment; Pitocin Drip 20 Units/1000ml NSS Meds After Delivery Comment: Pitocin 2o units in 1000 LR Delivery QBL: 645 Maternal Complications: None LABOR SUMMARY EDC: 04/10/2020 00:00 No. Babies in Womb: 1 Attempted: No LABOR INFORMATION Reason for Induction: Not Applicable Oxytocin: N/A Group B Beta Strep: Positive Antibiotics # of Doses: n/a Steroids Given: None Reason Steroids Not Administered: Not Applicable MEMBRANES Membranes Rupture Method: Artificial Rupture of Membranes: 04/08/2020 11:52 Length of Rupture (hr): 0.02 Amniotic Fluid Color: Clear Amniotic Fluid Amount: Small STAGES OF LABOR Stage 3 hr: 0 Stage 3 min: 1 CSECTION DELIVERY Primary Indication: Repeat Elective CSection Urgency: Scheduled CSection Incidence: Repeat Labor: N/A Elective: Elective CSection Incision: Lower Uterine Transverse BABY A INFORMATION Infant Delivery Date/Time: 04/08/2020 11:53 Method of Delivery: Nurse Controlled Delivery: No Born in Route : No : N/A Forceps: N/A Vacuum Extraction: N/A Shoulder Dystocia : No PRESENTATION/POSITION BABY A Presentation: Cephalic Cephalic Presentation: Vertex Breech Presentation: N/A PLACENTA INFORMATION BABY A Placenta Delivery Time : 04/08/2020 11:54 Placenta Method of Delivery: Manual Removal Placenta Status: Delivered SCORES BABY A Heart Rate 1 min: >100 bpm Resp Effort 1 min: Good Cry Reflex Irritability 1 min: Cough or Sneeze or Pulls Away Muscle Tone 1 min: Some Flexion of Extremities Color 1 min: Blue/Pale Resuscitation Effort 1 min: Tactile Stimulation SCORE 1 MIN: 7 Heart Rate 5 min: >100 bpm Resp Effort 5 min: Good Cry Reflex Irritability 5 min: Cough or Sneeze or Pulls Away Muscle Tone 5 min: Some Flexion of Extremities Color 5 min: Body Evening [place]ade, Extremities Blue Resuscitation Effort 5 min: PPV/NCPAP SCORE 5 MIN: 8 INFORMATION BABY A Gestational Age at Delivery: 39.5 Gestational Status: Full Term- 39- 40.6 Weeks Infant Outcome : Liveborn Infant Condition : Stable Infant Sex: Female IDENTIFICATION BABY A Infant Verification Date/Time: 04/08/2020 11:55 ID Band Number: [id number] Mother's Name Verified: Yes Infant RN Verifying : ChristinaDORIS and Phillip Alvarez RN WEIGHT/LENGTH BABY A Birthweight (gm): 3407 Infant Weight (lb): 7 Weight (oz): 8 Length (in): 20.00 Length (cm): 50.80 CORD INFORMATION BABY A No. Cord Vessels: 3 Nuchal Cord : Around Neck x1, Loose Cord Blood Taken: Yes-For Eval (Mom's Blood Type - or O+) Infant Suction: Mouth; Nose ASSESSMENT BABY A Skin to Skin: No BABY B INFORMATION : N/A
[2020-04-08] MEDS: DOCUSATE SODIUM 100 MG CAPSULE PO SCH (18:22)
[2020-04-09] MEDS: KETOROLAC TROMETHAMINE INJ/PF 30 MG/1 ML SDV IV SCH (05:55)
[2020-04-09 06:22] LABS: HEMATOCRIT 27.7 % (36.0-47.0); HEMOGLOBIN 9.2 g/dL (12.0-15.5); MEAN CORPUSCULAR VOLUME 79 fl (80-97); PLATELET COUNT 194 10^3/uL (150-450); RED BLOOD COUNT 3.52 10^6/uL (3.72-5.28); RED CELL DISTRIBUTION WIDTH 16.1 % (11.5-14.0); WHITE BLOOD COUNT 12.3 10^3/uL (4.0-10.5)
[2020-04-09] MEDS ORDERED: DIPH/PERTUSS(ACELL)/TETANUS VAC/PF 0.5 ML SYR (>=10YO) IM PRN (10:00)
[2020-04-09] MEDS ORDERED: MEASLES,MUMPS&RUBELLA VACC/PF 0.5 ML VIAL SUBCUT PRN (10:00)
[2020-04-09] MEDS ORDERED: PROMETHAZINE HCL INJ 25 MG/1 ML VIAL IV PRN (10:00)
[2020-04-09] MEDS: PRENATAL VITAMIN W DHA CAPSULE PO SCH (10:16)
[2020-04-09] MEDS: DOCUSATE SODIUM 100 MG CAPSULE PO SCH ×2 (10:16→17:44)
[2020-04-09] MEDS: IBUPROFEN 800 MG TABLET PO SCH ×2 (11:43→17:44)
--- NOTE | 2020-04-09 12:35 | PDOC PROGRESS REPORT ---
Subjective-OB Progress Note for:: 04/09/20 Subjective: Doing well, no c/o, pain under control. voiding, ambulating Physical Exam (OB) Vital Signs: Temp Pulse Resp BP Pulse Ox 97.7 F 79 18 116/59 L 100 04/09/20 10:54 04/09/20 10:54 04/09/20 10:54 04/09/20 10:54 04/09/20 10:54 Intake & Output 04/08/20 04/09/20 04/10/20 06:59 06:59 06:59 Intake Total 600 Output Total 1100 Balance -500 Weight 99.2 kg - PIH/Pre-Eclampsia DTR's: 1 + Clonus: Negative Headache: Absent Epigastric Pain: No Visual Changes: No - Dressing Removed: No - opsite Incision: Dressing Closure Type: opsite - Lochia Lochia Amount: Small 10-25 ml Lochia Color: Rubra/Red - Abdomen Description: Soft, Round Fundal Description: Firm, Midline Fundal Height: u/u - u/2 Objective-Diagnostic Laboratory: 04/09/20 06:14 04/09/20 04/09/20 06:14 06:14 WBC 12.3 H RBC 3.52 L Hgb 9.2 L Hct 27.7 L MCV 79 L MCH 26.0 L MCHC 33.0 RDW 16.1 H Plt Count 194 Blood Type O NEGATIVE Assessment and Plan(PN) - Assessment and Plan (1) GBS (group B Streptococcus carrier), +RV culture, currently Is this a current diagnosis for this admission?: Yes (2) Status post repeat low transverse section Is this a current diagnosis for this admission?: Yes - Time Spent with Patient Time with patient: Less than 15 minutes Medications reviewed and adjusted accordingly: Yes - Disposition Anticipated Discharge Disposition: Home, Self Care Anticipated Discharge Timeframe: within 24 hours
[2020-04-10] MEDS: IBUPROFEN 800 MG TABLET PO SCH ×4 (00:18→17:15)
[2020-04-10] MEDS: DOCUSATE SODIUM 100 MG CAPSULE PO SCH ×2 (09:22→17:15)
[2020-04-10] MEDS: PRENATAL VITAMIN W DHA CAPSULE PO SCH (09:22)
--- NOTE | 2020-04-10 10:52 | PDOC PROGRESS REPORT ---
Subjective-OB Progress Note for:: 04/10/20 - POD #2, pt doing well, waiting on ultrasound results on baby, otherwise, would like to go home today. s/p Repeat , O negative, will need Rhogam prior to discharge, UOB voiding Physical Exam (OB) Vital Signs: Temp Pulse Resp BP Pulse Ox 97.7 F 91 17 132/85 H 100 04/10/20 07:51 04/10/20 07:51 04/10/20 07:51 04/10/20 07:51 04/10/20 07:51 Intake & Output 04/09/20 04/10/20 04/11/20 06:59 06:59 06:59 Intake Total 600 500 Output Total 1100 Balance -500 500 Weight 99.2 kg - General General Appearance: Appears well, Alert In distress: None - PIH/Pre-Eclampsia DTR's: 2 + Clonus: Negative Headache: Absent Epigastric Pain: No Visual Changes: No - Dressing Removed: No Incision: Dressing Closure Type: Opsite - Lochia Lochia Amount: Scant < 10 ml Lochia Color: Rubra/Red - Abdomen Description: Tender, Soft Hernia Present: No Fundal Description: Firm, Midline Fundal Height: u/u - u/2 - Respiratory Respiratory Status: No respiratory distress - Abdominal Distension: No distension Tenderness: Nontender - Genitourinary Genitourinary Note: voiding - Extremities Upper extremity: Normal inspection Lower extremities: Normal inspection - Neurological Cognition: Normal Orientation: AAOx4 - Skin Skin Temperature: Warm Skin Moisture: Dry Objective-Diagnostic Laboratory: 04/09/20 06:14 Assessment and Plan(PN) - Assessment and Plan (1) GBS (group B Streptococcus carrier), +RV culture, currently Is this a current diagnosis for this admission?: Yes (2) Status post repeat low transverse section Is this a current diagnosis for this admission?: Yes (3) Chlamydia infection during Is this a current diagnosis for this admission?: Yes (4) Failure to progress in labor Is this a current diagnosis for this admission?: Yes (5) History of asthma Is this a current diagnosis for this admission?: Yes (6) Obesity Qualifiers: Obesity type: due to excess calories Serious obesity comorbidity presence: without serious comorbidity Is this a current diagnosis for this admission?: Yes (7) Qualifiers: Weeks of gestation: 39 weeks Qualified Code(s): Z3A.39 - 39 weeks gestation of Is this a current diagnosis for this admission?: Yes Plan:: routine PP orders, ambulation encouraged - Time Spent with Patient Time with patient: Less than 15 minutes Medications reviewed and adjusted accordingly: Yes - Disposition Anticipated Discharge Disposition: Home, Self Care Anticipated Discharge Timeframe: within 24 hours - january d/c home later on today if baby is allowed to be discharged
[2020-04-11] MEDS: IBUPROFEN 800 MG TABLET PO SCH ×2 (00:06→05:05)
[2020-04-11] MEDS: DOCUSATE SODIUM 100 MG CAPSULE PO SCH (09:20)
[2020-04-11] MEDS: PRENATAL VITAMIN W DHA CAPSULE PO SCH (09:21)
--- NOTE | 2020-04-11 10:27 | PDOC DISCHARGE SUMMARY ---
Impression - Admit/DC Date/PCP Admission Date/Primary Care Provider: 04/08/20 07:56 Discharge Date: 04/11/20 - POD #3, doing well, O negative, baby is O+, will need Rhogam. - Discharge Diagnosis (1) GBS (group B Streptococcus carrier), +RV culture, currently Is this a current diagnosis for this admission?: Yes (2) Status post repeat low transverse section Is this a current diagnosis for this admission?: Yes (3) Chlamydia infection during Is this a current diagnosis for this admission?: Yes (4) Failure to progress in labor Is this a current diagnosis for this admission?: Yes (5) History of asthma Is this a current diagnosis for this admission?: Yes (6) Obesity Is this a current diagnosis for this admission?: Yes (7) Is this a current diagnosis for this admission?: Yes (8) Rh negative status during Is this a current diagnosis for this admission?: Yes - Additional Information Resuscitation Status: Full Code Discharge Diet: As Tolerated, Regular Discharge Activity: Activity As Tolerated, No Driving, No Lifting Over 10 Pounds, Pelvic Rest Prescriptions: Ibuprofen [Motrin 800 mg Tablet] 800 mg PO Q6 #60 tablet Oxycodone HCl/Acetaminophen [Percocet 5-325 mg Tablet] 1 tab PO Q4HP PRN 30 Days #30 tablet PRN Reason: Pain Scale Of 4 Home Medications: Vit Calc,Iron,Folic [ Vitamins] 1 each PO DAILY 02/08/17 Ibuprofen [Motrin 800 mg Tablet] 800 mg PO Q6 #60 tablet 04/10/20 Oxycodone HCl/Acetaminophen [Percocet 5-325 mg Tablet] 1 tab PO Q4HP PRN 30 Days #30 tablet 04/10/20 HPI Reason(s) for Admission: Ceasarean Section-Repeat Procedures: Ultrasound Intrapartum Procedure(s): : Low Cervical, Transverse Hospital Course Hospital Course: normal Results Laboratory Results: WBC 12.3 10^3/uL (4.0-10.5) H 04/09/20 06:14 RBC 3.52 10^6/uL (3.72-5.28) L 04/09/20 06:14 Hgb 9.2 g/dL (12.0-15.5) L 04/09/20 06:14 Hct 27.7 % (36.0-47.0) L 04/09/20 06:14 MCV 79 fl (80-97) L 04/09/20 06:14 MCH 26.0 pg (27.0-33.4) L 04/09/20 06:14 MCHC 33.0 g/dL (32.0-36.0) 04/09/20 06:14 RDW 16.1 % (11.5-14.0) H 04/09/20 06:14 Plt Count 194 10^3/uL (150-450) 04/09/20 06:14 Lymph % (Auto) 24.7 % (13-45) 04/02/20 13:52 [facility] % (Auto) 5.9 % (3-13) 04/02/20 13:52 Eos % (Auto) 0.4 % (0-6) 04/02/20 13:52 Baso % (Auto) 0.1 % (0-2) 04/02/20 13:52 Absolute Neuts (auto) 7.8 10^3/uL (1.7-8.2) 04/02/20 13:52 Absolute Lymphs (auto) 2.8 10^3/uL (0.5-4.7) 04/02/20 13:52 Absolute Monos (auto) 0.7 10^3/uL (0.1-1.4) 04/02/20 13:52 Absolute Eos (auto) 0.0 10^3/uL (0.0-0.6) 04/02/20 13:52 Absolute Basos (auto) 0.0 10^3/uL (0.0-0.2) 04/02/20 13:52 Seg Neutrophils % 68.9 % (42-78) 04/02/20 13:52 Urine Color YELLOW 04/02/20 13:52 Urine Appearance SLIGHTLY-CLOUDY 04/02/20 13:52 Urine pH 8.0 (5.0-9.0) 04/02/20 13:52 Ur Specific [place] 1.006 04/02/20 13:52 Urine Protein NEGATIVE mg/dL (NEGATIVE) 04/02/20 13:52 Urine Glucose (UA) NEGATIVE mg/dL (NEGATIVE) 04/02/20 13:52 Urine Ketones NEGATIVE mg/dL (NEGATIVE) 04/02/20 13:52 Urine Blood NEGATIVE (NEGATIVE) 04/02/20 13:52 Urine Nitrite NEGATIVE (NEGATIVE) 04/02/20 13:52 Urine Bilirubin NEGATIVE (NEGATIVE) 04/02/20 13:52 Urine Urobilinogen NEGATIVE mg/dL (<2.0) 04/02/20 13:52 Ur Leukocyte Esterase TRACE (NEGATIVE) H 04/02/20 13:52 Urine WBC (Auto) 4 /HPF 04/02/20 13:52 Urine RBC (Auto) 1 /HPF 04/02/20 13:52 Urine Bacteria (Auto) TRACE /HPF 04/02/20 13:52 Squamous Epi Cells Auto 22 /HPF 04/02/20 13:52 Urine Mucus (Auto) RARE /LPF 04/02/20 13:52 Urine Ascorbic Acid NEGATIVE (NEGATIVE) 04/02/20 13:52 Urine Opiates Screen NEGATIVE 04/02/20 13:52 Urine Methadone Screen NEGATIVE 04/02/20 13:52 Ur Barbiturates Screen NEGATIVE 04/02/20 13:52 Ur Phencyclidine Scrn NEGATIVE 04/02/20 13:52 Ur Amphetamines Screen NEGATIVE 04/02/20 13:52 U Benzodiazepines Scrn NEGATIVE 04/02/20 13:52 Urine Cocaine Screen NEGATIVE 04/02/20 13:52 U Marijuana (THC) Screen NEGATIVE 04/02/20 13:52 COVID-19 Source NASOPHARYNGEAL 04/02/20 13:45 COVID-19 (IGLESIA) NOT DETECTED 04/02/20 13:45 Blood Type O NEGATIVE 04/09/20 06:14 Antibody Screen NEGATIVE 04/06/20 11:00 Screen NEGATIVE 04/09/20 06:14 Plan Plan of Treatment: d/c home, f/up with [facility] in one week for incision check Time Spent: Less than 30 Minutes
[2020-04-11 13:43] VITALS: BP 137/76
== END 2020-04-11 14:43 | disposition home or self-care (01) | DRG 788 ==
LOC: 2S 11:13 → UNDOADMIN 11:13 → 2S 04-08 07:56
PROVIDERS: ADMIT Obstetrics & Gynecology; ATTEND Obstetrics & Gynecology
PROC: 10D00Z1 Extraction of Products of Conception, Low, Open Approach (ICD-10-PCS; principal; 2020-04-08)
PROC: 3E0234Z Introduction of Serum, Toxoid and Vaccine into Muscle, Percutaneous Approach (ICD-10-PCS; 2020-04-10)
DX: O34.211 Maternal care for low transverse scar from previous cesarean delivery (principal); O69.81X0 Labor and delivery complicated by cord around neck, without compression, not applicable or unspecified; O99.824 Streptococcus B carrier state complicating childbirth; N85.8 Other specified noninflammatory disorders of uterus; Z3A.39 39 weeks gestation of pregnancy; O26.893 Other specified pregnancy related conditions, third trimester; Z67.41 Type O blood, Rh negative; Z20.828 Contact with and (suspected) exposure to other viral communicable diseases; Z37.0 Single live birth
CPT/HCPCS: 1961; 36415; 59025; 80307; 81001; 85025; 85027; 85461; 86850; 86900; 86901; 87635; 94760; 94799; C1758; C1765; C9803; J0131; J1885; J2210; J2250; J2270; J2405; J2590; J2790; J3010; J3490; J7120